=== PATIENT | female | born 1930 | race African-American/Black ===

== ENCOUNTER 2016-12-04 06:56 | Inpatient (IN) | payer OTHER ==
[~2016-12-04] VITALS: Ht 152.4 cm; Wt 77.7 kg
--- NOTE | 2016-12-04 07:10 | NUR ---
REPORT RECEIVED FROM RENAE RN AT BEDSIDE
--- NOTE | 2016-12-04 07:14 | NUR ---
DR BA AT BEDSIDE FOR ASSESSMENT
--- NOTE | 2016-12-04 07:16 | NUR ---
PT STATES HAVING HAD A "COLD IN THROAT".
[2016-12-04 07:38] LABS: BASOPHIL % 0.5 % (0-2); PLATELET COUNT 242 x10^3mcL (130-400); RED CELL DISTRIBUTION WIDTH 15.1 % (11.5-14.5)
[2016-12-04 07:45] LABS: CALCIUM 8.9 mg/dL (8.5-10.1); CARBON DIOXIDE 27.9 mmol/L (21-32); CHLORIDE SERUM 97 mmol/L (98-107); CREATININE SERUM 0.8 mg/dL (0.6-1.0); GLUCOSE SERUM 208 mg/dL (74-106); POTASSIUM SERUM 3.5 mmol/L (3.5-5.1); SODIUM SERUM 135 mmol/L (136-145)
--- NOTE | 2016-12-04 07:46 | NUR ---
PT STATED HAVING THE URGE TO URINATE. PT'S DIAPER WET. PLACED ON BEDPAN WITH NO URINAE OUTPUT
[2016-12-04 07:50] LABS: ALKALINE PHOSPHATASE 72 U/L (46-116); ALT/SGPT 18 U/L (14-59); AST/SGOT 20 U/L (15-37); BILIRUBIN TOTAL 0.22 mg/dL (0.20-1.00); TOTAL PROTEIN, SERUM 7.5 g/dL (6.4-8.2)
[2016-12-04 07:51] LABS: ALBUMIN 3.3 g/dL (3.4-5.0)
--- NOTE | 2016-12-04 07:55 | NUR ---
PT ABLE TO URINATE IN BEDPAN FOR UA
--- NOTE | 2016-12-04 08:02 | NUR ---
RADIOLOGY AT BEDSIDE
[2016-12-04 08:07] LABS: microscopic required? YES; urine erythrocyte 2+ (NEGATIVE)
--- NOTE | 2016-12-04 08:22 | NUR ---
PT IN RADIOLOGY AT THIS TIME FOR CT.
--- NOTE | 2016-12-04 08:24 | NUR ---
PT ARRIVED BACK TO UNIT AT THIS TIME
--- NOTE | 2016-12-04 08:27 | NUR ---
SHAHLA DE LOS SANTOS AT BEDSIDE FOR EKG
--- NOTE | 2016-12-04 09:09 | NUR ---
DR BA AT BEDSIDE AT THIS TIME DISCUSSING POC WITH PT AND PT'S DAUGHTER
[2016-12-04] MEDS ORDERED: NIFEDICAL XL30 MG PO (09:30)
[2016-12-04] MEDS ORDERED: GLIPIZIDE10 M2 PO (09:31)
[2016-12-04] MEDS ORDERED: METFORMIN HCL1000 MG PO (09:31)
[2016-12-04] MEDS ORDERED: LABETALOL HYDR300 MG PO (09:32)
[2016-12-04] MEDS ORDERED: HYDROCHLOROTHIA25 MG PO (09:33)
--- NOTE | 2016-12-04 09:42 | NUR ---
REPORT CALLED TO [facility] FINN AT THIS TIME. ALL QUESTIONS ANSWERED, ALL CONCERNS ADDRESSED.
--- NOTE | 2016-12-04 09:43 | NUR ---
PT SLEEPING, EASILY AROUSABLE AT THIS TIME. UPDATED ON POC
[2016-12-04 09:55] VITALS: BP 144/69
--- NOTE | 2016-12-04 10:02 | NUR ---
PT RECEIVED FROM ED VIA [employer] 42cm. PT IS ACCOMPANIED BY HER DAUGHTER. PT IS AAO X4. NO INDICATION OF ACUTE DISTRESS IS PRESENT AT THE MOMENT. PATIENT DENIES PAIN. TELE MONITOR [address] PT HAS BEEN ORIENTED TO ROOM AND CALL LIGHT. WILL CONTINUE TO MONITOR.
[2016-12-04 10:26] VITALS: BP 144/69
[2016-12-04 11:14] VITALS: Ht 152.4 cm; Wt 77.7 kg
[2016-12-04 11:35] LABS: MAGNESIUM 1.6 mg/dL (1.8-2.4); PHOSPHOROUS 3.3 mg/dL (2.5-4.9)
[2016-12-04 11:37] LABS: CHOLESTEROL/HDL RATIO 2.7
[2016-12-04 11:45] LABS: T3 TOTAL 0.71 ng/mL
[2016-12-04 11:46] LABS: FREE T4 1.22 ng/dL (0.76-1.46); FREE THYROXINE INDEX 3.1 ug/dL (1.4-4.5); T4(THYROXINE) 8.2 ug/dL (4.7-13.3)
[2016-12-04 12:30] LABS: AMPHETAMINE QUAL UR NONE DETECTED (NEG <=1000)
--- NOTE | 2016-12-04 12:50 | NUR ---
PT ASSISTED WITH LUNCH TRAY AT THIS TIME. PT TOLERATED FOOD WELL WITHOUT ANY SIGNS OF CHOKING OR ASPIRATION. NO SIGNS OF ACUTE DISTRESS. ALL SAFETY PRECAUTIONS IN PLACE. WILL CONTINUE TO MONITOR.
[2016-12-04 14:30] VITALS: BP 131/58
--- NOTE | 2016-12-04 17:00 | NUR ---
PT WAS ASSISTED TO THE BATHROOM WITH TWO PERSON ASSIST. PT GAIT WAS SLOW AND UNBALANCED. POSTURE WAS POOR. PT HAD LARGE BOWEL MOVEMENT. ALL SAFETY PRECAUTIONS IN PLACE. WILL CONTINUE TO MONITOR.
[2016-12-04 17:31] VITALS: BP 132/43
--- NOTE | 2016-12-04 19:40 | NUR ---
REPORT WAS GIVEN TO SALES REPRESENTATIVE ADDING MACHINES NURSE. AT THIS TIME PATIENT IS RESTING IN BED WITH HER DAUGHTER AT BEDSIDE. NO SIGNS OF ACUTE DISTRESS ARE PRESENT. ALL SAFETY PRECAUTIONS IN PLACE.
--- NOTE | 2016-12-04 19:50 | NUR ---
PT ALERT/ORIENTED X4. NO C/O PAIN. PT DAUGHTER AT BEDSIDE. TELE # 25, HR; 67. PT ASSESSED; SEE NSG FLOWSHEET. SAFETY REINFORCED; SEE EDUCAT SHEET. WILL CONTINUE TO MONITOR.
[2016-12-04 21:33] VITALS: BP 131/68
--- NOTE | 2016-12-04 22:30 | NUR ---
PT AWAKE. NO C/O PAIN. WILL CONTINUE TO MONITOR.
--- NOTE | 2016-12-05 01:07 | NUR ---
PT SLEEPING. NO DISTRESS NOTED. BREATHING IS EVEN AND UNLABORED. WILL CONTINUE TO MONITOR.
--- NOTE | 2016-12-05 02:50 | NUR ---
PT AWAKE. NO C/O PAIN. NO DISTRESS NOTED. WILL CONTINUE TO MONITOR.
[2016-12-05 05:17] VITALS: BP 138/59
--- NOTE | 2016-12-05 05:31 | NUR ---
PT SLEPT IN LONG INTERVALS THROUGHOUT THE NIGHT. NO DISTRESS NOTED. NO C/O PAIN. WILL CONTINUE TO MONITOR.
[2016-12-05 07:21] LABS: BASOPHIL % 0.6 % (0-2); PLATELET COUNT 219 x10^3mcL (130-400)
[2016-12-05 07:23] VITALS: BP 135/64
--- NOTE | 2016-12-05 07:25 | NUR ---
PT RECEIVED. AT THIS TIME PATIENT IS RESTING COMFORTABLY IN BED. TELE MONITOR [address] IV INFUSING. PATIENT DOES NOT SHOW SIGNS OF ACUTE DISTRESS AT THIS TIME. RESPIRATIONS ARE EVEN AND UNLABORED ON ROOM AIR. PT DENIES PAIN. ALL SAFETY PRECAUTIONS ARE IN PLACE. WILL CONTINUE TO MONITOR.
[2016-12-05 07:27] LABS: RED CELL DISTRIBUTION WIDTH 15.7 % (11.5-14.5)
[2016-12-05 07:39] LABS: CHLORIDE SERUM 107 mmol/L (98-107); CREATININE SERUM 0.8 mg/dL (0.6-1.0); GLUCOSE SERUM 123 mg/dL (74-106); POTASSIUM SERUM 4.4 mmol/L (3.5-5.1); SODIUM SERUM 140 mmol/L (136-145)
--- NOTE | 2016-12-05 08:56 | NUR ---
PT IS CURRENTLY RESTING IN BED. PT IS AAOX4. NO INDICATIONS OF ACUTE DISTRESS ARE PRESENT. PT RESPIRATIONS ARE EVEN AND UNLABORED ON ROOM AIR. PT DENIES PAIN AT THIS TIME. ALL SAFETY PRECAUTIONS ARE IN PLACE. WILL CONTINUE TO MONITOR.
[2016-12-05 13:20] VITALS: BP 140/57
--- NOTE | 2016-12-05 16:02 | NUR ---
DR COLBY IN TO ASSESS PATIENT AT THIS TIME. PATIENT'S DAUGHTER AT BEDSIDE. ALL QUESTIONS AND CONCERNS ADDRESSED, WILL CONTINUE TO MONITOR.
[2016-12-05 17:01] VITALS: BP 140/54
--- NOTE | 2016-12-05 19:20 | NUR ---
PT ENDORSED TO NEXT SHIFT. AT THIS TIME THE PATIENT IS RESTING IN BED COMFORTABLY. NO IDICATIONS OF ACUTE DISTRESS ARE PRESENT AT THIS TIME. ALL SAFETY PRECAUTIONS ARE IN PLACE .
--- NOTE | 2016-12-05 19:30 | NUR ---
PT ALERT/ORIENTED X4. NO C/O PAIN. TELE #25, SR, HR; 62. PT ASSESSED; SEE NSG FLOWSHEET. SAFETY REINFORCED; SEE EDUCAT SHEET. WILL CONTINUE TO MONITOR.
[2016-12-05 21:19] VITALS: BP 140/68
--- NOTE | 2016-12-05 21:30 | NUR ---
PT APPEARS TO BE CONFUSED AT THIS TIME, STATES WANTS TO GO TO BED IN THE BED NEXT TO HER. WHEN ASKED NAME, DAY, MONTH AND YEAR PT IS ORIENTED. PT ALSO TOOK OFF TELE MONITOR. DR COTO MADE AWARE AND STATED HE WILL COME AND SEE THE PT. WILL CONTINUE TO MONITOR FREQUENTLY
--- NOTE | 2016-12-05 23:38 | NUR ---
PT SLEEPING. NO DISTRESS NOTED. WILL CONTINUE TO MONITOR.
--- NOTE | 2016-12-06 01:52 | NUR ---
PT SLEEPING. NO DISTRESS NOTED. WILL CONTINUE TO MONITOR.
--- NOTE | 2016-12-06 03:00 | NUR ---
PT AWAKE. WILL CONTINUE TO MONITOR.
[2016-12-06 04:56] VITALS: BP 114/63
--- NOTE | 2016-12-06 05:52 | NUR ---
PT SLEPT IN MODERATE INTERVALS THROUGHOUT THE NIGHT. NO C/O PAIN. WILL CONTINUE TO MONITOR.
--- NOTE | 2016-12-06 07:15 | NUR ---
ALERT TO SELF. PLEASANTLY CONFUSED. DENIES ANY PAIN. TELE # 25 NSR. BREATHING FREELY ON RA. GENERALIZED WEAKNESS. USES CANE AND WALKER AT HOME. BED IN LOW POSITION. SR UP X 2. PT SAYS SHE IS READY FOR BREAKFAST. HOB ELEVATED 35 DEGREES. NS INFUSING 50 CC HOUR LEFT HAND.ASSIST WITH ADL'S. INSTRUCTED PT TO USE CALL LIGHT AND NOT TO GET OUT OF BED ALONE. BED ALARM ON.
[2016-12-06 07:34] LABS: BASOPHIL % 0.4 % (0-2); PLATELET COUNT 200 x10^3mcL (130-400)
[2016-12-06 07:37] LABS: RED CELL DISTRIBUTION WIDTH 15.3 % (11.5-14.5)
[2016-12-06 07:47] LABS: CALCIUM 9.2 mg/dL (8.5-10.1); CARBON DIOXIDE 26.5 mmol/L (21-32); CHLORIDE SERUM 105 mmol/L (98-107); CREATININE SERUM 0.6 mg/dL (0.6-1.0); GLUCOSE SERUM 133 mg/dL (74-106); POTASSIUM SERUM 4.1 mmol/L (3.5-5.1); SODIUM SERUM 140 mmol/L (136-145)
[2016-12-06 09:48] VITALS: BP 129/53
--- NOTE | 2016-12-06 12:24 | NUR ---
ALERT AND CONFUSED. PHYSICAL THERAPY IN TO SEE PT. SHE HAS BEEN WANTING TO GET OUT OF BED.
[2016-12-06 14:16] VITALS: BP 122/62
[2016-12-06 17:06] VITALS: BP 117/56
--- NOTE | 2016-12-06 19:18 | NUR ---
PT VERY CONFUSED WITH HER SURROUNDINGS. DTR AND SON IN LAW AT BEDSIDE. SITTER TO PROVIDE ASSISTANCE WITH ADL'S. NS INFUSING 50 CC HOUR. NO C/O PAIN. TELE # 25 NSR. SKIN INTACT. INCONTINENT. CALL LIGHT WITHIN REACH.
--- NOTE | 2016-12-06 19:20 | NUR ---
TRANSFERED TO RM 210 A WITH SITTER.
--- NOTE | 2016-12-06 19:40 | NUR ---
PT SEEN, RESTING IN THE BED, ALERT AND ORIENTED X 1 WITH PERIOD OF CONFUSION, DENIES HEADACHE OR DIZZINESS, BREATHING EVEN AND UNLABORED, NO SOB, LUNG SOUNDS CLEAR, ON ROOM AIR WITH NO RESP DISTRESS NOTED, ON TELE#25 NSR, DENIES CHEST PAIN, PULSES PALPABLE, TRACE EDEMA NOTED TO BLE, GENERALIZED WEAKNESS, USES WALKER AND CANE AT HOME, ABD SOFT WITH ACTIVE BS, NO BM AT THIS TIME, INCONTINENT AT TIMES, COMMERCIAL ACCOUNT MANAGER AT BEDSIDE WITH ASSIST, BED ALARM ON, FALL PRECAUTION IN PLACE, NO DISTRESS NOTED, WILL KEEP TO MONITOR.
[2016-12-06 21:56] VITALS: BP 123/57
--- NOTE | 2016-12-07 05:45 | NUR ---
PT ASLEEP BUT EASILY AROUSABLE, SLEPT ON AND OFF WHOLE NIGHT, AWAKE, ALERT AND ORIENTED TO SELF AND FAMILY MEMBERS BUT CONFUSED WITH PLACE AND DATES, IVF INFUSING WELL, MORNING BLOOD SUGAR-97 MG/DL WITH NO RISS, SIDE RAILS UP, NO DISTRESS NOTED, WILL KEEP TO MONITOR.
[2016-12-07 06:10] VITALS: BP 140/62
--- NOTE | 2016-12-07 07:38 | NUR ---
PT RECEIVED DURING CHANGE OF SHIFT, ASLEEP BUT AROUSABLE, REPORTS OF CONFUSION, TELE 25, NSR, PULSES PRESENT, TRACE EDEMA BLE, LUNGS CTA ON RA, BREATHING EVEN AND UNLABORED, BOWEL SOUNDS ACTIVE, INCONTINENT OF URINE, GENERALIZED WEAKNESS, SKIN WARM DRY INTACT, NO INDICATION OF PAIN, IV TO LT HAND INFUSING NS AT 50ML/HR, IV WNL, CALL LIGHT WITHIN REACH, SITTER AT BEDSIDE, WILL CONTINUE TO MONITOR.
[2016-12-07 07:57] VITALS: BP 149/67
--- NOTE | 2016-12-07 08:10 | NUR ---
PT DENIES SOB, C/O BACK PAIN 11/08, MEDICATED PER EMAR, REPORTS OF LOOSE BM'S LAST NIGHT, HOLDING COLACE, SITTER AT BEDSIDE, BREAKFAST TRAY IN FRONT OF PT, CALL LIGHT WITHIN REACH, WILL CONTINUE TO MONITOR.
[2016-12-07 08:39] LABS: BASOPHIL % 0.5 % (0-2); PLATELET COUNT 220 x10^3mcL (130-400); RED CELL DISTRIBUTION WIDTH 15.1 % (11.5-14.5)
--- NOTE | 2016-12-07 08:45 | NUR ---
DR. KELYL AND RESIDENTS MAKING ROUNDS, PLAN OF CARE DISCUSSED, POSSIBILITY OF DISCHARGE TODAY EXPLAINED.
[2016-12-07 08:59] LABS: CALCIUM 9.4 mg/dL (8.5-10.1); CARBON DIOXIDE 32.3 mmol/L (21-32); CHLORIDE SERUM 105 mmol/L (98-107); CREATININE SERUM 0.7 mg/dL (0.6-1.0); GLUCOSE SERUM 122 mg/dL (74-106); POTASSIUM SERUM 4.9 mmol/L (3.5-5.1); SODIUM SERUM 143 mmol/L (136-145)
--- NOTE | 2016-12-07 09:03 | NUR ---
PT DENIES SOB, DENIES PAIN, STATES MEDICATION EFFECTIVE, CALL LIGHT WITHIN REACH, METALLURGICAL INSPECTOR AT BEDSIDE, WILL CONTINUE TO MONITOR.
--- NOTE | 2016-12-07 10:14 | NUR ---
PT SITTING IN CHAIR, DENIES SOB, DENIES PAIN, SOLID WASTE ENGINEER AT BEDSIDE, CALL LIGHT WITHIN REACH, WILL CONTINUE TO MONITOR.
--- NOTE | 2016-12-07 11:14 | NUR ---
PT SITTING UP IN CHAIR, DENIES SOB, DENIES PAIN, CALL LIGHT WITHIN REACH, EROSION CONTROL SPECIALIST AT BEDSIDE, WILL CONTINUE TO MONITOR.
--- NOTE | 2016-12-07 12:18 | NUR ---
PT SITTING UP IN CHAIR, DENIES SOB, DENIES PAIN, CALL LIGHT WITHIN REACH, NEUROLOGY SPECIALIST AT BEDSIDE, WILL CONTINUE TO MONITOR.
--- NOTE | 2016-12-07 13:04 | NUR ---
PT EATING LUNCH, NO INDICATION OF PAIN, BREATHING EVEN AND UNLABORED, CALL LIGHT WITHIN REACH, TELEVISION REPAIRER AT BEDSIDE, WILL CONTINUE TO MONITOR.
[2016-12-07 13:16] VITALS: BP 149/67
--- NOTE | 2016-12-07 14:06 | NUR ---
PT DENIES SOB, DENIES PAIN, TRANSFER CAR OPERATOR AT BEDSIDE, CALL LIGHT WITHIN REACH, WILL CONTINUE TO MONITOR.
[2016-12-07 14:07] VITALS: BP 111/51
--- NOTE | 2016-12-07 15:04 | NUR ---
PT SITTING UP IN CHAIR SPEAKING TO DECK LID FITTER, DENIES SOB, DENIES PAIN, CALL LIGHT WITHIN REACH, WILL CONTINUE TO MONITOR.
--- NOTE | 2016-12-07 16:16 | NUR ---
PT SITTING UP IN CHAIR, DENIES SOB, DENIES PAIN, DIRECTOR STATE PHARMACY AT BEDSIDE, CALL LIGHT WITHIN REACH, WILL CONTINUE TO MONITOR.
--- NOTE | 2016-12-07 16:34 | NUR ---
PHYSICAL THERAPY DAILY NOTES CO-SIGN All documentation done by the Channel Program Manager for 12/07/16 has been reviewed. I agree with the documentation. Reviewed/Co-Signed by: Alex Naranjo PT Documentation Done by:CALLIE DE LA VEGA DIRECTOR OF ROTC POC REVIEWED W/ DIRECTOR OF ROTC; PROGRESSED W/ GAIT ENDURANCE & FUNC MOB.
--- NOTE | 2016-12-07 17:11 | NUR ---
PT DENIES SOB, DENIES PAIN, ATTEMPTED TO REMOVE TELE, INSTRUCTED THAT ONCE DISCHARGE BEGINS IT WILL BE DC'D, CALL LIGHT WITHIN REACH, STAFF MEMBER AT BEDSIDE, WILL CONTINUE TO MONITOR.
[2016-12-07] MEDS ORDERED: ASPIR 8181 MG PO (17:37)
[2016-12-07] MEDS ORDERED: LIPI20 PO (17:37)
--- NOTE | 2016-12-07 18:07 | NUR ---
PT AND FAMILY RECEIVED DISCHARGE TEACHING, VERBALIZED UNDERSTANDING, ALL QUESTIONS ANSWERED, IV DC'D CATHETER INTACT, ARMBAND DC'D, TELE 25 DC'D AND RETURNED TO MONITOR STATION, PT AND FAMILY BEING ESCORTED DOWNSTAIRS BY DAVID BURT.
== END 2016-12-07 18:00 | disposition home or self-care (01) | DRG 637 ==
LOC: ED 06:56 → DU 09:20
PROVIDERS: Emergency Medicine; Family Medicine; ADMIT Student in an Organized Health Care Education/Training Program
DX: E11.649 Type 2 diabetes mellitus with hypoglycemia without coma (principal); G93.41 Metabolic encephalopathy; D68.69 Other thrombophilia; E87.1 Hypo-osmolality and hyponatremia; N39.0 Urinary tract infection, site not specified; E11.65 Type 2 diabetes mellitus with hyperglycemia; E11.59 Type 2 diabetes mellitus with other circulatory complications; N17.0 Acute kidney failure with tubular necrosis; R31.29 Other microscopic hematuria; I10 Essential (primary) hypertension; Z68.34 Body mass index [BMI] 34.0-34.9, adult; Z79.84 Long term (current) use of oral hypoglycemic drugs
CPT/HCPCS: 82962; 83880; 84439; 97110-GP; 97116-GP; 97530-GP; J1815; J7030; J7042; Q0092